=== PATIENT | male | born 1950 | race Caucasian/White ===

== ENCOUNTER 2018-05-14 22:26 | Inpatient (IN) | payer OTHER, BC ==
[~2018-05-14] VITALS: Ht 182.9 cm; Wt 103.0 kg
[2018-05-14 22:54] LABS: BASOPHIL % 0.1 % (0-2)
[2018-05-14 23:01] LABS: RED CELL DISTRIBUTION WIDTH 23.3 % (11.5-14.5)
[2018-05-14 23:13] LABS: CALCIUM 8.5 mg/dL (8.5-10.1); CARBON DIOXIDE 31.5 mmol/L (21-32); rbc morphology (normal/abnorm) ABNORMAL (NORMAL); target cell (codocyte) 1+
[2018-05-14 23:14] LABS: TOTAL PROTEIN, SERUM 5.3 g/dL (6.4-8.2); acanthocyte (spur cell) 1+
[2018-05-14 23:17] LABS: PLATELET COUNT 248 x10^3mcL (130-400)
[2018-05-15 02:53] LABS: MAGNESIUM 1.6 mg/dL (1.8-2.4)
[2018-05-15 02:55] LABS: CHOLESTEROL/HDL RATIO 4.6
[2018-05-15 14:08] VITALS: BP 81/54
[2018-05-15 15:53] VITALS: BP 80/43
[2018-05-15 19:25] VITALS: BP 88/55
[2018-05-15 22:08] LABS: PLATELET COUNT 285 x10^3mcL (130-400)
[2018-05-15 22:09] LABS: RED CELL DISTRIBUTION WIDTH 23.9 % (11.5-14.5)
[2018-05-15 22:15] LABS: BAND NEUTROPHIL 2 % (0-10); BASOPHIL 0 % (0-2); MONOCYTE 3 % (0-7); SEGMENTED NEUTROPHILS 89 % (37-75); rbc morphology (normal/abnorm) ABNORMAL (NORMAL)
[2018-05-15 22:16] LABS: burr cell (echinocyte) 1+; ovalocyte/elliptocyte 1+
[2018-05-15 22:19] LABS: IRON 219 ug/dL (65-170); TOTAL IRON BINDING CAPACITY 224 ug/dL (250-450)
[2018-05-15 22:23] LABS: RED BLOOD CELLS 2.01 M/mm3 (4.52-5.90)
[2018-05-16] VITALS (14 sets, daily range): BP systolic 64–97; BP diastolic 44–61; Ht 182.9 cm; Wt 103.0 kg
[2018-05-16 07:00] LABS: CALCIUM 8.5 mg/dL (8.5-10.1); MAGNESIUM 2.4 mg/dL (1.8-2.4)
[2018-05-16 07:06] LABS: CREATININE SERUM 5.7 mg/dL (0.7-1.3); POTASSIUM SERUM 6.6 mmol/L (3.5-5.1)
[2018-05-16 07:13] LABS: PLATELET COUNT 348 x10^3mcL (130-400)
[2018-05-16 07:14] LABS: RED CELL DISTRIBUTION WIDTH 20.6 % (11.5-14.5)
[2018-05-16 08:15] LABS: PHOSPHOROUS 11.4 mg/dL (2.5-4.9)
[2018-05-16 12:41] LABS: BAND NEUTROPHIL 3 % (0-10); BASOPHIL 0 % (0-2); MONOCYTE 3 % (0-7); SEGMENTED NEUTROPHILS 88 % (37-75); rbc morphology (normal/abnorm) ABNORMAL (NORMAL)
[2018-05-16 12:42] LABS: acanthocyte (spur cell) 1+; burr cell (echinocyte) 2+; ovalocyte/elliptocyte 1+
[2018-05-16 16:21] LABS: CALCIUM 8.7 mg/dL (8.5-10.1)
[2018-05-16 16:24] LABS: POTASSIUM SERUM 6.4 mmol/L (3.5-5.1)
[2018-05-16 16:25] LABS: CARBON DIOXIDE 7.3 mmol/L (21-32); CREATININE SERUM 5.7 mg/dL (0.7-1.3)
== END 2018-05-16 19:24 | disposition expired | DRG 208 ==
LOC: ED 22:26 → IC 05-15 02:07 → DU 05-15 02:07 → IC 05-15 14:42
PROVIDERS: Emergency Medicine; General Practice; Internal Medicine; Internal Medicine Gastroenterology
PROC: 30233N1 Transfusion of Nonautologous Red Blood Cells into Peripheral Vein, Percutaneous Approach (ICD-10-PCS; 2018-05-15)
PROC: 0BH17EZ Insertion of Endotracheal Airway into Trachea, Via Natural or Artificial Opening (ICD-10-PCS; 2018-05-16)
PROC: 5A1935Z Respiratory Ventilation, Less than 24 Consecutive Hours (ICD-10-PCS; 2018-05-16)
PROC: 05HM33Z Insertion of Infusion Device into Right Internal Jugular Vein, Percutaneous Approach (ICD-10-PCS; 2018-05-16)
PROC: 0DB68ZX Excision of Stomach, Via Natural or Artificial Opening Endoscopic, Diagnostic (ICD-10-PCS; principal; 2018-05-16 10:30)
PROC: 0DH68UZ Insertion of Feeding Device into Stomach, Via Natural or Artificial Opening Endoscopic (ICD-10-PCS; 2018-05-16 10:30)
DX: J18.9 Pneumonia, unspecified organism (principal); I21.A1 Myocardial infarction type 2; J96.01 Acute respiratory failure with hypoxia; I50.43 Acute on chronic combined systolic (congestive) and diastolic (congestive) heart failure; N18.6 End stage renal disease; N17.0 Acute kidney failure with tubular necrosis; G93.41 Metabolic encephalopathy; E43 Unspecified severe protein-calorie malnutrition; K29.01 Acute gastritis with bleeding; K25.4 Chronic or unspecified gastric ulcer with hemorrhage; I13.2 Hypertensive heart and chronic kidney disease with heart failure and with stage 5 chronic kidney disease, or end stage renal disease; L97.229 Non-pressure chronic ulcer of left calf with unspecified severity; K31.1 Adult hypertrophic pyloric stenosis; D62 Acute posthemorrhagic anemia; I95.9 Hypotension, unspecified; E83.41 Hypermagnesemia; E83.39 Other disorders of phosphorus metabolism; E11.22 Type 2 diabetes mellitus with diabetic chronic kidney disease; E11.622 Type 2 diabetes mellitus with other skin ulcer; E11.51 Type 2 diabetes mellitus with diabetic peripheral angiopathy without gangrene; E11.40 Type 2 diabetes mellitus with diabetic neuropathy, unspecified; E11.43 Type 2 diabetes mellitus with diabetic autonomic (poly)neuropathy; K31.84 Gastroparesis; K44.9 Diaphragmatic hernia without obstruction or gangrene; K74.69 Other cirrhosis of liver; I25.10 Atherosclerotic heart disease of native coronary artery without angina pectoris; Z99.2 Dependence on renal dialysis; Z68.20 Body mass index [BMI] 20.0-20.9, adult; Z91.14 Patient's other noncompliance with medication regimen; Z99.81 Dependence on supplemental oxygen; Z95.5 Presence of coronary angioplasty implant and graft; Z66 Do not resuscitate
CPT/HCPCS: 36556; 36600; 43235; 78598; 82962; 83880; 85378; 87804; 94150; A4628; A9540; C9113; J0171; J1170; J1200; J1265; J1610; J1642; J1644; J1650; J2060; J2250; J2270; J2310; J2370; J2405; J2543; J2704; J2765; J2930; J3010; J3370; J3490; J7040; J7042; J7050; J7613; J7644; P9016; Q0092